=== PATIENT | female | born 1950 | race Caucasian/White ===

== ENCOUNTER → 2017-07-04 | Outpatient (CLI) | payer MEDICARE ==
[~2017-07-04] MED LIST: ALE70 PO; ASC500 PO; CA C1TAB9 PO; CHOL10005 PO; CYAN100017 PO; EPIN0.3P14 IM; FLAX100042 PO; FOSAMAX; GLUC-130 PO; KELP1TAB PO; KRIL1CAP6 PO; LEV500 PO; LUTE1CAP PO; MECL25TA9 PO; METR-160 PO; MILK140C3 PO; MONT10TA PO; MULT-1335 PO; PRE20 PO; [UNRECOGNIZED DRUG - CODE] PO; [UNRECOGNIZED DRUG - CODE] PO; [UNRECOGNIZED DRUG - CODE] PO; [UNRECOGNIZED DRUG - OTHER]
[2017-07-04 08:50] LABS: PLATELET COUNT, AUTOMATED 220 K/uL (150-450)
[2017-07-04 08:53] LABS: LDL CHOLESTEROL 77 mg/dl
--- NOTE | 2017-07-04 09:12 | RADIOLOGY IMAGING REPORT ---
FACILITY: [facility] [place] PATIENT NAME: Venita Farris : 1950 MR: [id number] V: [id number] EXAM DATE: ORDERING PHYSICIAN: NAYANA BOONE TECHNOLOGIST: Location: [facility] Patient: Venita Farris : 1950 Visit/Account:[id number] Date of Sevice: 07/04/2017 KIDNEYS EXAMINATION: Renal ultrasound. History: Multiple renal cysts COMPARISON STUDIES: MR the abdomen September 19, 2015 FINDINGS: Kidneys: Right kidney- 9.9 x 4.3 x 6 cm Left kidney- 11.9 x 7 x 5.3 cm Uniform and symmetric blood flow in each kidney by Doppler ultrasound. Hydronephrosis: none There are multiple left-sided renal cysts the largest measuring 4.6 cm in diameter slightly increased in size when compared the prior MR Bladder: Prevoid volume 196 mL. The post void residual 22 mL. Bilateral ureteral jets are present Abdominal aorta and IVC: Aorta and IVC are patent by Doppler ultrasound. IMPRESSION: Multiple left-sided renal cysts again noted. The largest measures 4.6 in meters in diameter slightly increased in size when compared to the prior MR Report Dictated By: Marisel Macias MD at 07/04/2017 9:00 AM Report E-Signed By: Marisel Macias MD at 07/04/2017 9:08 AM WSN:[email or web address]
== END ==
LOC: US 05:28
PROVIDERS: ATTEND Nurse Practitioner Family
DX: N28.1 Cyst of kidney, acquired (principal); E55.9 Vitamin D deficiency, unspecified; E78.00 Pure hypercholesterolemia, unspecified; R73.01 Impaired fasting glucose; R53.81 Other malaise
CPT/HCPCS: 36415; 76705; 82040; 82247; 82306; 82310; 82374; 82435; 82465; 82565; 82947; 83718; 84075; 84132; 84155; 84295; 84443; 84450; 84460; 84478; 84520; 85025

== ENCOUNTER → 2017-10-09 | Outpatient (CLI) | payer MEDICARE ==
--- NOTE | 2017-10-10 08:31 | RADIOLOGY IMAGING REPORT ---
FACILITY: [facility] PATIENT NAME: JEAN-CLAUDE REA : [id number] MR: [id number] V: [id number] EXAM DATE: ORDERING PHYSICIAN: NAYANA BOONE TECHNOLOGIST: Christie Hung PROCEDURE:BILATERAL DIGITAL SCREENING MAMMOGRAM WITH CAD ASSISTED INTERPRETATION & 3D TOMOSYNTHESIS COMPARISON:Prior mammograms 10/08/16, 10/03/15, 05/20/14, 02/14/12, 02/11/11. INDICATIONS:SCREENING FINDINGS: Moderately dense fibroglandular tissue is seen throughout the breasts. The parenchymal pattern has remained stable allowing for difference in mammographic technique & patient positioning. There is no evidence of malignant appearing mass, malignant appearing calcifications or other secondary sign of malignancy in either breast. DIAGNOSTIC CATEGORY 1--NEGATIVE. RECOMMENDATIONS: ROUTINE MAMMOGRAM AND CLINICAL EVALUATION. IMPRESSION: BIRADS 1: Negative. No significant abnormality is seen. Dictated by: Marisel Macias M.D. on 10/09/2017 at 16:18 Transcribed by: PARDEEP on 10/10/2017 at 7:57 Approved by: Marisel Macias M.D. on 10/10/2017 at 8:30 [facility]
== END ==
LOC: MAMO 01:07
PROVIDERS: ATTEND Nurse Practitioner Family
DX: Z12.31 Encounter for screening mammogram for malignant neoplasm of breast (principal)
CPT/HCPCS: 77063; 77067

== ENCOUNTER → 2017-10-22 | Outpatient (CLI) | payer MEDICARE ==
[~2017-10-22] MED LIST changes: +MILK THISTLE140 MG PO; -MILK140C3 PO
== END ==
LOC: LAB 08:59
PROVIDERS: ATTEND Internal Medicine Nephrology
DX: Z13.9 Encounter for screening, unspecified (principal); Q61.00 Congenital renal cyst, unspecified
CPT/HCPCS: 36415; 82565

== ENCOUNTER → 2017-10-28 | Outpatient (CLI) | payer MEDICARE ==
[~2017-10-28] MED LIST changes: +IOPAMIDOL 76% 75 ML INFUS BTL 75 ML ONE
--- NOTE | 2017-10-28 09:51 | RADIOLOGY IMAGING REPORT ---
FACILITY: [facility] [place] PATIENT NAME: Venita Farris : 1950 MR: [id number] V: [id number] EXAM DATE: ORDERING PHYSICIAN: BONY TINOCO TECHNOLOGIST: Location: [facility] [place] Patient: Venita Farris : 1950 Visit/Account:[id number] Date of Sevice: 10/28/2017 CT ABDOMEN WITH IV CONTRAST CLINICAL INFORMATION: Renal masses, left TECHNIQUE: Axial CT images were obtained through the abdomen during injection of nonionic iodinated intravenous contrast. Reformatted coronal and sagittal images were also obtained. Dose Lowering Tech Cryptonator One of the following dose optimization techniques was utilized in the performance of this exam: Autom ated exposure control; adjustment of the mA and/or kV according to the patient's size; or use of an i terative reconstruction technique. Specific details can be referenced in the facility's radiology C T exam operational policy. CONTRAST: 75 mL of Isovue 370 IV contrast. COMPARISON: MR the abdomen September 19, 2015. And CT of abdomen and pelvis September 06, 2015, renal ultraso und July 04, 2017 FINDINGS: Lower lung earl: Limited views lower lung field are unremarkable. Liver: No focal parenchymal abnormality of the liver. Biliary: Gallbladder appears unremarkable as well as the intra and extra hepatic biliary system. Pancreas: Normal appearance. Spleen: Normal appearance. Adrenal glands: Unremarkable. Kidneys / retroperitoneum: Right kidney appears unremarkable. Again noted are multiple masses in the left kidney. Most appear unchanged in size. There is a 4.4 c m hypoattenuating mass along the lateral aspect upper pole of the left kidney containing a small mura l calcification, this previously measured 3.9 cm. There is also a hypoattenuating mass projecting fr om the medial lower pole of the left kidney now measuring 1.9 cm previously 1.7 cm. no abnormal enha ncement was identified within these masses on the prior MR and all of these masses appear to be cysti c on the prior ultrasound Bowel / peritoneum / mesenteries: The visualized small and large bowel appear unremarkable. Lymph node assessment: No pathologic adenopathy identified. Vessels: No significant atherosclerotic calcification seen throughout a nonaneurysmal abdominal aorta and branches. Musculoskeletal / Body wall: Spondylotic changes L5-S1 IMPRESSION: 1. Multiple hypoattenuating masses are again seen throughout the left kidney. Most appear unchanged in size. There is a 4.4 cm hypoattenuating mass along the lateral aspect upper pole the left kidney containing small mural calcification previously measuring 3.9 cm on the prior CT although appears re latively stable when compared to the most recent renal ultrasound. There is also slight increase in one of the hypoattenuating masses projecting from the medial lower pole the left kidney now measuring 1.9 cm as opposed 1.7 cm. Of note no abnormal contrast enhancement was identified on the prior MR a nd all the masses appear to be cystic on the prior renal ultrasound Report Dictated By: Marisel Macias MD at 10/28/2017 9:17 AM Report E-Signed By: Marisel Macias MD at 10/28/2017 9:47 AM VICN:[email or web address]
== END ==
LOC: CT 01:17
PROVIDERS: ATTEND Internal Medicine Nephrology
DX: Z13.9 Encounter for screening, unspecified (principal); Q61.00 Congenital renal cyst, unspecified; N20.0 Calculus of kidney
CPT/HCPCS: 74160; Q9967

== ENCOUNTER 2017-12-25 11:27 | Emergency (ER) | payer OTHER, MEDICARE ==
[~2017-12-25 11:27] MED LIST changes: -IOPAMIDOL 76% 75 ML INFUS BTL 75 ML ONE
[2017-12-25] MEDS ORDERED: CETI10CA8 PO (11:44)
[2017-12-25] MEDS ORDERED: ASPI81TA94 PO (11:44)
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
[2017-12-25 13:30] VITALS: BP 171/72
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
[2017-12-25] MEDS ORDERED: CYCL10TA29 PO (13:59)
== END 2017-12-25 14:20 | disposition home or self-care (01) ==
LOC: ER 12:06
DX: S16.1XXA Strain of muscle, fascia and tendon at neck level, initial encounter (principal); S29.019A Strain of muscle and tendon of unspecified wall of thorax, initial encounter
CPT/HCPCS: 70450; 72125; 72128; 73030; 99284; L0172

== ENCOUNTER → 2018-01-07 | Outpatient (CLI) | payer MEDICARE ==
[~2018-01-07] MED LIST changes: +ASPI81TA94 PO; +CETI10CA8 PO; +CYCL10TA29 PO; +DIPH0.5D12 IM
== END ==
LOC: LAB 13:47
PROVIDERS: ATTEND Emergency Medicine
DX: M81.0 Age-related osteoporosis without current pathological fracture (principal); G62.9 Polyneuropathy, unspecified
CPT/HCPCS: 36415; 82306; 82310; 82374; 82435; 82565; 82607; 82947; 83970; 84132; 84295; 84520

== ENCOUNTER → 2018-01-20 | Outpatient (CLI) | payer MEDICARE ==
[~2018-01-20] MED LIST changes: +CYAN500T38 PO; +GADOBENATE 529MG/1ML 15ML VIAL IVP ONE
--- NOTE | 2018-01-20 12:30 | RADIOLOGY IMAGING REPORT ---
FACILITY: [facility] [place] PATIENT NAME: Venita Farris : 1950 MR: [id number] V: [id number] EXAM DATE: ORDERING PHYSICIAN: DEZ HSU TECHNOLOGIST: Location: [facility] [place] Patient: Venita Farris : 1950 Visit/Account:[id number] Date of Sevice: 01/20/2018 ADDENDUM #1 Images from June 25, 2010 MRI brain with and without contrast were archived and not available at the time of initial report. I am now able to retrieve these for [id number] comparison. When accounting for slight differences in slice selection, the scattered foci of abnormal white matte r signal are considered stable in size and distribution compared to 2010. Increased conspicuity of a single subcortical left parietal white matter lesion on series 8 image 17 appears to be due to sligh t differences in slice selection. Accounting for this, no definite new white matter lesions. Overall there has been no significant change from 06/25/2010. Discussed with Caitlin in the ordering marcela gipson's office at 2:34 PM on 01/20/2018. Report Dictated By: Tommy Villarreal at 01/20/2018 2:29 PM Report E-Signed By: Tommy Villarreal at 01/20/2018 2:34 PM ORIGINAL REPORT BRAIN W W/O CONTRAST COMPARISON: None. HISTORY: Abnormal MRI, white matter abnormality, headache, asymmetric reflexes. TECHNIQUE: Multiplanar MRI brain utilizing T1 weighted and fluid sensitive sequences, with and witho ut IV gadolinium. CONTRAST: 13 MultiHance given intravenously. FINDINGS: CSF SPACES: Ventricles, cisterns, and sulci are diffusely prominent consistent with volume loss whic h appears age-appropriate. No hydrocephalus, extra-axial hemorrhage, or mass. No midline shift. CEREBRUM: Patchy foci of abnormal T2/ FLAIR signal hyperintensity in the cerebral white matter, pred ominantly within the frontal and parietal lobes bilaterally, commonly secondary to chronic small vess el ischemic disease. The pattern is not typical of demyelinating disease. No acute infarct by diffu layne-weighted imaging. No acute intracranial hemorrhage or cerebral edema. There is no abnormal pare nchymal enhancement and there are no enhancing lesions. Midline structures are normally formed. CEREBELLUM: No edema, hemorrhage, mass, acute infarction, or significant atrophy. Tonsils are not l ow lying. BRAINSTEM: No edema, hemorrhage, mass, acute infarction, or significant atrophy. CALVARIUM: Unremarkable. SINUSES: Limited views demonstrate no significant mucosal thickening or fluid. ORBITS: Limited views are unremarkable. OTHER: There is no abnormal parenchymal or meningeal enhancement. IMPRESSION: 1. Mild cerebral white matter signal abnormality, most consistent with mild chronic small vessel isc hemic disease. White matter signal abnormality can also be seen in the setting of chronic migraine h eadaches. The pattern is not typical of demyelinating disease. 2. No acute intracranial findings or abnormal enhancement. Report Dictated By: Tommy Villarreal at 01/20/2018 12:20 PM Report E-Signed By: Tommy Villarreal at 01/20/2018 12:26 PM WSN:[email or web address]
--- NOTE | 2018-01-20 14:50 | RADIOLOGY IMAGING REPORT ---
FACILITY: [facility] [place] PATIENT NAME: Venita Farris : 1950 MR: [id number] V: [id number] EXAM DATE: ORDERING PHYSICIAN: DEZ HSU TECHNOLOGIST: Location: [facility] Patient: Venita Farris : 1950 Visit/Account:[id number] Date of Sevice: 01/20/2018 DEXA Scan Clinical history: Osteopenia. Comparison: DEXA scan from 01/31/2012. LUMBAR SPINE: The bone mineral density (BMD) measured from L1-L4 correlates with a Z-score -1.0 and a T-score of - 2.7 which is osteoporosis as defined by the World Health Organization. The corresponding risk of fra cture in the lumbar spine is high compared with a young adult reference population. This value has d ecreased by 1.5 % since the prior study. More than 5% change is considered significant. HIP: Bone mineral density (BMD) measured in the Left femoral neck region correlates with a Z-score -0.1 an d a T-score of -1.7 which is osteopenia as defined by the World Health Organization. The correspon ding risk of fracture in the hip is increased compared with a young adult reference population. The t otal hip value has decrease by 4.4 % since the prior study. More than 5% change is considered signif icant. Bone mineral density (BMD) measured in the Femoral Neck region measures 0.796 g/cm2. IMPRESSION: 1. Lumbar spine: Osteoporosis. There has been decrease in the bone mineral density since the previo us exam. 2. Left femoral neck region: Osteopenia. There has been decrease in the bone mineral density of the total hip since the previous exam. 3. Femoral Neck: Bone Mineral Density is 0.796 g/cm2 The next DEXA scan of this patient should include the following sites: L1-L4 and the left hip. FRAX? WHO Fracture Risk Assessment Tool link: <http://www.shef.ac.uk/FRAX/tool.jsp?locationValue=9> PLEASE NOTE: 1) The World Health Organization defines low BMD as follows: T-score Normal > -1 Osteopenia < -1 and > -2.5 Osteoporosis < -2.5 without fractures Established osteoporosis < -2.5 with fractures 2) In general, you may wish to consider: Diagnosis Treatment Follow-up DEXA Normal BMD Prevention 2-3 years Osteopenia Prevention/therapy 1-2 years Osteoporosis Therapy Yearly 3) Fracture risk estimated from the T-score is more accurate for vertebral fractures (often spontane ous) than for hip fractures. Report Dictated By: Kwan Zaman at 01/20/2018 2:38 PM Report E-Signed By: Kwan Zaman at 01/20/2018 2:46 PM WSN:[email or web address]
== END ==
LOC: MRI 00:41
PROVIDERS: ATTEND Emergency Medicine
DX: M81.0 Age-related osteoporosis without current pathological fracture (principal); M85.88 Other specified disorders of bone density and structure, other site; R90.82 White matter disease, unspecified; R93.89 Abnormal findings on diagnostic imaging of other specified body structures
CPT/HCPCS: 70553; 77080; A9577

== ENCOUNTER → 2018-08-11 | Outpatient (CLI) | payer MEDICARE ==
[~2018-08-11] MED LIST changes: +ALEN70TA43 PO; -DIPH0.5D12 IM; +DIPH0.5S2 IM; +DOXY-179 PO; +DOXY-228 PO; -GADOBENATE 529MG/1ML 15ML VIAL IVP ONE; -METR-160 PO; +METR500T15 PO
--- NOTE | 2018-08-11 17:20 | RADIOLOGY IMAGING REPORT ---
FACILITY: [facility] [place] PATIENT NAME: Venita Farris : 1950 MR: [id number] V: [id number] EXAM DATE: ORDERING PHYSICIAN: DEZ HSU TECHNOLOGIST: Location: [facility] [place] Patient: Venita Farris : 1950 Visit/Account:[id number] Date of Sevice: 08/11/2018 Technique: CHEST PA LAT HISTORY: cough Comparison studies: January 07, 2012 FINDINGS: No acute airspace consolidation. No pleural effusion. There is mild pulmonary hyperexpansio n. The cardiac silhouette is unremarkable. IMPRESSION: 1. No acute cardiopulmonary process. Report Dictated By: Tee Rod DO at 08/11/2018 5:10 PM Report E-Signed By: Tee Rod DO at 08/11/2018 5:12 PM WSN:[email or web address]
== END ==
LOC: RAD 16:25
PROVIDERS: ATTEND Emergency Medicine
DX: R05 Cough (principal)
CPT/HCPCS: 71046

== ENCOUNTER → 2018-09-03 | Outpatient (CLI) | payer MEDICARE ==
[~2018-09-03] MED LIST changes: -CYAN500T38 PO; +CYAN500T39 PO
[2018-09-03 17:08] LABS: PLATELET COUNT, AUTOMATED 223 K/uL (150-450)
[2018-09-03 17:41] LABS: LDL CHOLESTEROL 77 mg/dl
== END ==
LOC: LAB 16:50
PROVIDERS: ATTEND Emergency Medicine
DX: Z00.00 Encounter for general adult medical examination without abnormal findings (principal); M81.0 Age-related osteoporosis without current pathological fracture
CPT/HCPCS: 36415; 82040; 82247; 82306; 82310; 82374; 82435; 82465; 82565; 82947; 83718; 84075; 84132; 84155; 84295; 84450; 84460; 84478; 84520; 85025